=== PATIENT | female | born 1960 | race Caucasian/White ===

== ENCOUNTER → 2019-11-06 | Outpatient (CLI) | payer OTHER | LOC: MC.RAD 17:00 | DX: Z12.31 Encounter for screening mammogram for malignant neoplasm of breast (principal); N63.20 Unspecified lump in the left breast, unspecified quadrant ==

== ENCOUNTER → 2020-08-03 | Outpatient (CLI) | payer OTHER | LOC: MC.RAD 12:57 | DX: N63.20 Unspecified lump in the left breast, unspecified quadrant (principal) ==